=== PATIENT | male | born 1990 | race Caucasian/White ===

== ENCOUNTER 2023-12-26 23:18 | Emergency (ER) | payer OTHER, SELFPAY ==
[2023-12-26 23:20] VITALS: BP 152/83; PULSE 65; RESP 16; TEMP 36.8; O2SAT 98; BMI 28.8
--- NOTE | 2023-12-27 00:02 | EX.ED.UPPERE ---
HPI History of Present Illness Chief Complaint: Laceration Informant: patient Narrative Narrative: 33-year-old healthy [id number] male punched his right hand through a window in order to unlock a door that he was not able to get through, sustaining lacerations in the process. He does not feel like there is any glass in the wounds. He is having mild pain, mostly at the right fifth MCPJ. Tetanus Immunization: 5-10 years PFS PFS Medical History no medical history no medical history Allergy/AdvReac Type Severity Reaction Status Date / Time No Known Allergies Allergy Verified 12/26/23 23:20 Social History Smoking Status: Never smoker ROS ROS ED Constitutional Constitutional ED: Denies chills or fever(s) Musculoskeletal Musculoskeletal: Reports extremity pain; Denies neck pain Integumentary Reports as per HPI and laceration; Denies Abrasions or rash Neurologic Neurologic: Reports paresthesias RUE (Thumb partial); Denies weakness EXAM Physical Exam Const Vital Signs: 12/26/23 23:20 Temperature 98.3 F Temperature Source Oral Pulse Rate 65 Respiratory Rate 16 Blood Pressure 152/83 H Blood Pressure Mean 106 Pulse Ox 98 Oxygen Delivery Method Room Air Positive well nourished and well developed General Appearance ED: well developed and NAD Neck full ROM and supple Back/Spine normal ROM and normal to inspection Extremity full ROM Extremity Narrative: Multiple lacerations to fingers including the thumb. Full range of motion all tendon function intact. Tenderness at the right fifth metacarpal head. There is no rotational deformity. There is mild swelling at the third metacarpal head without any significant tenderness there. No other bony tenderness throughout the hand. Neuro oriented x3, no focal motor deficits and no sensory deficits noted Sensorium / Orientation: alert Psych mental status grossly normal and thought process normal Skin Skin Narrative: Multiple lacerations to the right hand. At the right thumb proximal phalanx just distal to the webspace, there is a 3.5 cm full-thickness laceration. At the fifth finger PIPJ, there is a full-thickness 1 cm linear laceration. At the fourth finger PIPJ, there is a full-thickness 1 cm linear laceration. To the third finger PIPJ there is a superficial epidermal avulsion without laceration or exposure of subcutaneous tissues, just dermis. There are couple other abrasions to the other fingers but no other lacerations. Rashes: no rashes MDM MDM MDM Narrative Medical decision making narrative: Three-view x-ray series of the right hand were obtained and on my interpretation are negative for acute fracture or radiopaque foreign body. However, during the repair see the procedure note, and the thumb laceration there were 3 small pieces of foreign material that were removed, and after discussing with the patient, we determined that they appear to be small pieces of flaked paint, he said it was a very old door and the pain was coming off of it. It did not show up on x-ray, making it less likely to be lead-based. After anesthetizing the thumb laceration and during the exploration of the wound, there was some white tissue that appeared more consistent with tendon than subcutaneous fat, so under further examination, more radially beneath the skin to the laceration, I was able to see that the extensor pollicis longus is partially torn/lacerated. He has normal function of it. For this reason I am placing him in a thumb spica splint that is prefabricated Velcro and have him follow-up with plastics/hand Dr. Corley as an outpatient. He is comfortable with that plan. I do not think he needs antibiotics for this injury. Radiography Diagnostic Testing: Clinical Impression(s) from Imaging Studies Hand X-Ray 12/27/23 00:03 IMPRESSION: No fracture or malalignment. Electronically Signed: Ranulfo Keys MD at 0:45 EDT Reading Location ID and State: [address] [place] [address] Tel , Service support , Procedures Lacerations R thumb: Length: 3.5 cm Depth: Tendon (thumb extensor pollicis longus tendon w/ partial tear; still functions normally) Shape: irreg, mostly linear Prep: Sterile Conditions and Chlorhexadine Laceration repair: Foreign material removed (3 very small pieces of paint), Irrigated, Lidocaine (2cc, 1%), Local and Skin sutures Irrigated (ml): 160 Number of Sutures/[employer]: 6 Suture Information: Ethilon, Simple and 4-0 R ring finger: Length: 1 cm Depth: Sub Q Shape: Linear Prep: Sterile Conditions and Chlorhexadine Laceration repair: Irrigated, Lidocaine (1%, 0.5cc), Local and Skin sutures Irrigated (ml): 60 Number of Sutures/[employer]: 2 Suture Information: Ethilon, Simple and 4-0 R small finger: Length: 1 cm Depth: Sub Q Shape: Linear Prep: Sterile Conditions and Chlorhexadine Laceration repair: Irrigated, Lidocaine (1%, 0.5cc), Local and Skin sutures Irrigated (ml): 60 Number of Sutures/[place]: 2 Suture Information: Ethilon, Simple and 4-0 Discharge Plan Triage Chief Complaint: Laceration ED Provider: Sandro Bolaños Dx/Rx/DC Orders Clinical Impression: Laceration of multiple sites of right hand and fingers, Laceration of right thumb with tendon involvement, Avulsion of skin of middle finger Instructions: ED Laceration, Hand: All Closures, ED Tendon Laceration Primary Care Provider: Care Physician,No Primary Referrals: Rivas Corley MD [Med Staff - Active Staff] - As soon as possible (sutures generally to be removed 10-14 days) Print Language: Kiswahili Disposition Disposition: Home, Self Care
--- NOTE | 2023-12-27 00:03 | RAD_ITS ---
INDICATION: Injury EXAMINATION/TECHNIQUE: X-RAY - RIGHT XR Hand Min 3 Views 3 VIEWS COMPARISON: No relevant prior comparison study available FINDINGS: SOFT TISSUES: No soft tissue swelling or gas. No radiopaque foreign body. BONES/JOINTS: No acute fracture or subluxation.. Normal alignment. Preservation of the joint space.. No sclerotic or destructive changes observed. RAD/Hand Min 3 Views IMPRESSION: No fracture or malalignment. Electronically Signed: Ranulfo Keys MD at 0:45 EDT ,
[2023-12-27] MEDS: Lidocaine 1% (20 ml mdv) 20 ML Vial INFILT (00:34)
== END 2023-12-27 02:25 | disposition home or self-care (01) ==
PROVIDERS: Emergency Provider Emergency Medicine; Visit Provider Emergency Medicine
DX: S66.221A Laceration of extensor muscle, fascia and tendon of right thumb at wrist and hand level, initial encounter (principal); S61.021A Laceration with foreign body of right thumb without damage to nail, initial encounter; S61.214A Laceration without foreign body of right ring finger without damage to nail, initial encounter; S61.216A Laceration without foreign body of right little finger without damage to nail, initial encounter; S61.202A Unspecified open wound of right middle finger without damage to nail, initial encounter; W25.XXXA Contact with sharp glass, initial encounter
CPT/HCPCS: 12002; 73130; 99285